=== PATIENT | female | born 1975 | race Caucasian/White ===

== ENCOUNTER 2022-02-11 09:02 | Emergency (ER) | payer OTHER ==
[~2022-02-11] VITALS: Ht 154.9 cm; Wt 77.0 kg
[2022-02-11 09:38] VITALS: BP 138/86
[2022-02-11] MEDS ORDERED: LIDOCAINE HCL/PF 1% 10 MG/ML 5ML VIAL INFIL ONE (10:30)
[2022-02-11] MEDS ORDERED: BACITRACIN ZINC OINT UDPKT TOP ONE (10:30)
[2022-02-11] MEDS ORDERED: TETANUS, DIPHTHERIA, PERTUSSIS VAC/PF 0.5ML (>10YR OLD) IM ONE ×2 (10:30→12:45)
[2022-02-11] MEDS ORDERED: LIDOCAINE HCL 1% 10 MG/ML 10ML VIAL IJ SCH (12:45)
[2022-02-11] MEDS ORDERED: BACITRACIN ZINC OINT UDPKT TOP SCH (12:45)
[2022-02-11] MEDS ORDERED: BO1 TP (13:10)
== END 2022-02-11 14:22 | disposition home or self-care (01) ==
LOC: ER 09:02
DX: S61.512A Laceration without foreign body of left wrist, initial encounter (principal); W26.0XXA Contact with knife, initial encounter; Y93.89 Activity, other specified; Y92.89 Other specified places as the place of occurrence of the external cause; Y99.8 Other external cause status
CPT/HCPCS: 12002; 90471; 90715; 99283; J3490